=== PATIENT | male | born 1990 | race Two or more races ===

== ENCOUNTER 2024-02-21 07:49 | Inpatient (IN) | payer OTHER ==
[~2024-02-21] VITALS: Ht 165.1 cm; Wt 129.7 kg
--- NOTE | 2024-02-21 08:17 | NUR ---
PTE REFIERE SEVERA CONSTRIPACION, HACE VARIOS LEVIN. Y DESDE JAVIER COMENZO CON DOLOR GEORGE SIN EVACUAR., SE LE PENNY S/V Y SE UBICA EN PASILLO.
[2024-02-21] MEDS ORDERED: MORPHINE SULFATE 4 MG/ML CARTRIDGE IV ONE ×2 (08:30→13:30)
[2024-02-21] MEDS ORDERED: FAMOtidine 10 MG/ML (4ML VIAL) IV ONE (08:30)
[2024-02-21] MEDS ORDERED: SODIUM CHLORIDE IV ONE (08:30)
[2024-02-21] MEDS ORDERED: DIPHENHYDRAMINE HCL 50 MG/ML VIAL 1ML IV ONE (08:45)
[2024-02-21] MEDS ORDERED: METHYLPREDNISOLONE SOD SUCC 40 MG VIAL IV ONE (08:45)
[2024-02-21] MEDS ORDERED: METHYLPREDNISOLONE SOD SUCC 40 MG VIAL ONE (08:49)
[2024-02-21] MEDS ORDERED: DIPHENHYDRAMINE HCL 50 MG/ML VIAL 1ML ONE (08:49)
[2024-02-21] MEDS ORDERED: FAMOTIDINE/PF 20 MG/2 ML VIAL ONE ×2 (08:49→17:33)
--- NOTE | 2024-02-21 08:55 | NUR ---
PACIENTE EVALUADO POR MD DAVIS ORDENA TRATAMIENTO MEDICO, LUKAS HAHN LE ORIENTA A PACIENTE SOBRE EL MISMO Y VERBALIZA ENTENDER, LE COLECTA MUESTRAS DE LABORATORIO Y LE CANALIZA BAJO MEDIDAS, LE ADMINISTRA MEDICAMENTOS Y LE COLOCA IV FLUIDS GERA ORDEN.
[2024-02-21] MEDS ORDERED: BARIUM SULFATE 450 ML ORAL.SUSP PO ONE (09:02)
[2024-02-21] MEDS ORDERED: LIDOCAINE HCL VISCOUS 20MG/ML BLIST 15ML MM ONE (09:07)
[2024-02-21 09:52] LABS: AMYLASE 52 U/L (25-115); LIPASE 25 U/L (13-75)
[2024-02-21 09:54] LABS: INR 1.04; PARTIAL THROMBOPLASTIN TIME 32.3 SECONDS (22.0-34.0); PROTHROMBIN TIME 10.9 SECONDS (9.0-11.5)
[2024-02-21 09:57] LABS: PH,URINE 5.5 (5.0-8.0); URINE APPEARANCE Clear; URINE BILIRRUBIN Negative (NEGATIVE); URINE BLOOD Negative; URINE COLOR Yellow; URINE GLUCOSE Negative (NEGATIVE); URINE LEUKOCYTE Negative; URINE NITRATE Negative; URINE PROTEIN Trace (NEGATIVE)
[2024-02-21 10:01] LABS: URINE BACTERIA 16.3 uL (0.0-1933); URINE EPITHELIAL CELLS 26.8 uL (0.0-38.8); URINE WBC 14.6 uL (0.0-23.2)
[2024-02-21 10:05] LABS: HEMATOCRIT 41.2 % (39.0-48.0); HEMOGLOBIN 13.7 g/dL (13-16.00); MEAN CELL VOLUME 80.8 fL (80.0-100.00); MEAN CORPUSCULAR HEMOGLOBIN 26.9 pg (27.00-32.0); MEAN CORPUSCULAR HGB CONC 33.3 g/dl (32.0-36.0); PLATELET COUNT 344 K/uL (150-450); RED CELL DISTRIBUTION WIDTH 14.2 % (11.5-14.5)
[2024-02-21 10:11] LABS: BILIRUBIN TOTAL 0.39 mg/dL (0.3-1.2); CALCIUM 10.4 mg/dL (8.5-10.1); CREATININE SERUM 0.87 mg/dL (0.70-1.30); GFR 99.86; GLOBULINA 4.7 G/DL (2.4-3.5); POTASSIUM 3.77 mEq/L (3.5-5.1); TOTAL PROTEIN 8.7 gm/dL (6.4-8.2)
--- NOTE | 2024-02-21 10:23 | NUR ---
RN JOVANI LE INSERTA SONDA NASOGRATRICA # 18 EN FOSA NASAL DERECHA, AL MOMENTO SE OBESRVA CON EGRESO DE RESIDUOS GASTRICOS.
[2024-02-21 10:51] LABS: URINE CAST 1.22 uL (0.0-1.40); URINE KETONE 80 (NEGATIVE); URINE RBC 1.8 uL (0.0-20.8)
[2024-02-21] MEDS ORDERED: ONDANSETRON HCL 2 MG/ML VIAL ONE ×2 (13:43→17:32)
[2024-02-21] MEDS ORDERED: FAMOTIDINE/PF 20 MG in 0.9 % SODIUM CHLORIDE 8 ML IV PUSH SCH (17:14)
[2024-02-21] MEDS ORDERED: ACETAMINOPHEN 500 MG GEL..CAP PO PRN (17:15)
[2024-02-21] MEDS ORDERED: DEXTROSE 5 % AND 0.9 % NACL 1,000 ML IV SCH (17:15)
[2024-02-21] MEDS ORDERED: ONDANSETRON HCL 4 MG in 0.9 % SODIUM CHLORIDE 50 ML IV PRN (17:15)
[2024-02-21] MEDS ORDERED: ENALAPRILAT DIHYDRATE 1.25 MG/ML VIAL IV PRN (17:15)
[2024-02-21] MEDS ORDERED: CIPROFLOXACIN IN 5 % DEXTROSE 200 ML IV SCH (17:16)
[2024-02-21] MEDS ORDERED: METRONIDAZOLE/SODIUM CHLORIDE 100 ML IV SCH (17:16)
[2024-02-21] MEDS ORDERED: MORPHINE SULFATE 2 MG/ML CARTRIDGE IV SCH (18:00)
[2024-02-22 07:10] LABS: ALBUMIN 3.8 gm/dL (3.4-5.0); ALKALINE PHOSPHATASE 100 U/L (50-136); ALT/SGPT 19 U/L (12-78); ANION GAP 11 (10.0-20.0); AST/SGOT 14 U/L (15-37); BILIRUBIN TOTAL 0.31 mg/dL (0.3-1.2); BILIRUBIN,CONJUGATED < 0.10 mg/dL (0.0-0.2); BILIRUBIN,UNCONJUGATED 0.21 mg/dL (0.0-0.6); BLOOD UREA NITROGEN 10 mg/dL (7-18); BUN CREA RATIO 13 (7.0-25.0); CARBON DIOXIDE 26 mEq/L (21-32); CHLORIDE 105 mmol/L (98-107); CHOL HDL RATIO 5.9 (0-5.0); CHOLESTEROL 231 mg/dL (0-200); CREATININE SERUM 0.77 mg/dL (0.70-1.30); GFR 114.97; GLOBULINA 3.9 G/DL (2.4-3.5); GLUCOSE FASTING 156 mg/dL (65-100); HDL 39 mg/dl (40-60); LDL 177 mg/dl (0-130); LIPASE 25 U/L (13-75); OSMOLALITY SERUM 278 MOSM/KG (275-295); SODIUM 138 mmol/L (136-145); TOTAL PROTEIN 7.7 gm/dL (6.4-8.2); TRIGLYCERIDES 73 mg/dL (0-150); VLDL 14 (0-39)
[2024-02-22 07:24] LABS: C-REACTIVE PROTEIN 4.39 MG/DL (0.00-0.29)
[2024-02-22 08:36] LABS: HEMATOCRIT 39.6 % (39.0-48.0); HEMOGLOBIN 13.2 g/dL (13-16.00); MEAN CELL VOLUME 82.3 fL (80.0-100.00); MEAN CORPUSCULAR HEMOGLOBIN 27.4 pg (27.00-32.0); MEAN CORPUSCULAR HGB CONC 33.3 g/dl (32.0-36.0); PLATELET COUNT 336 K/uL (150-450); RED BLOOD COUNT 4.81 M/uL (4.00-6.00); RED CELL DISTRIBUTION WIDTH 13.9 % (11.5-14.5)
[2024-02-22] MEDS ORDERED: ENOXAPARIN SODIUM 40 MG/0.4 ML SYRINGE SUBCUTANEO SCH (09:00)
[2024-02-22 09:10] LABS: INR 1.08; PARTIAL THROMBOPLASTIN TIME 29.4 SECONDS (22.0-34.0); PROTHROMBIN TIME 11.3 SECONDS (9.0-11.5)
[2024-02-22] MEDS ORDERED: MORPHINE SULFATE 4 MG/ML VIAL IV STA (09:27)
[2024-02-22] MEDS ORDERED: MORPHINE SULFATE 4 MG/ML CARTRIDGE IV PRN (09:30)
[2024-02-22 09:42] LABS: PH,URINE 5.5 (5.0-8.0); URINE APPEARANCE Clear; URINE BILIRRUBIN Negative (NEGATIVE); URINE BLOOD Negative; URINE COLOR Dark Yellow; URINE GLUCOSE Negative (NEGATIVE); URINE KETONE 15 (NEGATIVE); URINE LEUKOCYTE Trace; URINE NITRATE Negative; URINE PROTEIN 30 (NEGATIVE); URINE UROBILINOGEN 0.2 E.U./dl
[2024-02-22 09:45] LABS: URINE BACTERIA 22.6 uL (0.0-1933); URINE CAST 2.29 uL (0.0-1.40); URINE EPITHELIAL CELLS 12.6 uL (0.0-38.8); URINE RBC 2.1 uL (0.0-20.8); URINE WBC 10.9 uL (0.0-23.2)
[2024-02-22] MEDS ORDERED: MEPERIDINE HCL/PF 25 MG/ML VIAL IM STA (12:13)
[2024-02-22] MEDS ORDERED: MEPERIDINE HCL/PF 50 MG/ML VIAL IV PRN (12:45)
[2024-02-22] MEDS ORDERED: HYOSCYAMINE SULFATE 0.125 MG TAB.SUBL SL SCH (13:00)
[2024-02-23] MEDS ORDERED: SUGAMMADEX SODIUM 200 MG/2 ML VIAL IV ONE (12:30)
[2024-02-23] MEDS ORDERED: RINGERS SOLUTION,LACTATED 1,000 ML IV SCH (13:00)
[2024-02-23] MEDS ORDERED: ONDANSETRON HCL 2 MG/ML VIAL IV PRN (13:00)
[2024-02-23] MEDS ORDERED: DEXTROSE 50 % IN WATER 0.5 G/ML DISP.SYRIN IV PRN (13:00)
[2024-02-23] MEDS ORDERED: HYOSCYAMINE SULFATE 0.125 MG TAB.SUBL SL SCH (13:00)
[2024-02-23] MEDS ORDERED: FAMOTIDINE/PF 20 MG/2 ML VIAL IV PUSH SCH (21:00)
[2024-02-24 08:10] LABS: MEAN CELL VOLUME 81.5 fL (80.0-100.00); MEAN CORPUSCULAR HEMOGLOBIN 27.1 pg (27.00-32.0); MEAN CORPUSCULAR HGB CONC 33.2 g/dl (32.0-36.0); PLATELET COUNT 272 K/uL (150-450); RED BLOOD COUNT 4.42 M/uL (4.00-6.00); RED CELL DISTRIBUTION WIDTH 13.6 % (11.5-14.5)
[2024-02-24 09:04] LABS: ALBUMIN 2.8 gm/dL (3.4-5.0); CREATININE SERUM 0.56 mg/dL (0.70-1.30); GFR 166.03; MAGNESIUM 1.9 mg/dL (1.8-2.4); POTASSIUM 3.61 mEq/L (3.5-5.1)
[2024-02-24 09:27] LABS: PHOSPHOROUS 1.7 mg/dL (2.5-4.9)
[2024-02-24] MEDS ORDERED: NAPH,MB-DB/K PH,MBDB 1 PKT PACKET PO SCH (13:00)
[2024-02-24] MEDS ORDERED: ENOXAPARIN SODIUM 40 MG/0.4 ML SYRINGE SUBCUTANEO SCH (17:00)
[2024-02-24] MEDS ORDERED: GABAPENTIN 300 MG CAPSULE PO SCH (17:01)
[2024-02-24] MEDS ORDERED: MEPERIDINE HCL/PF 50 MG/ML VIAL IV PRN (17:15)
[2024-02-25] MEDS ORDERED: ENOXAPARIN SODIUM 40 MG/0.4 ML SYRINGE SUBCUTANEO SCH (09:00)
[2024-02-25 18:02] LABS: URINE APPEARANCE Clear; URINE BILIRRUBIN Negative (NEGATIVE); URINE BLOOD Negative; URINE COLOR Yellow; URINE GLUCOSE Negative (NEGATIVE); URINE KETONE Negative (NEGATIVE); URINE LEUKOCYTE Negative; URINE NITRATE Negative; URINE PROTEIN Negative (NEGATIVE); URINE UROBILINOGEN 0.2 E.U./dl
[2024-02-25 18:03] LABS: URINE BACTERIA 8.8 uL (0.0-1933); URINE WBC 2.4 uL (0.0-23.2)
[2024-02-25 18:08] LABS: URINE CAST 0.61 uL (0.0-1.40); URINE RBC 0.9 uL (0.0-20.8)
[2024-02-26 07:12] LABS: HEMATOCRIT 38.4 % (39.0-48.0); HEMOGLOBIN 12.7 g/dL (13-16.00); MEAN CELL VOLUME 82.2 fL (80.0-100.00); MEAN CORPUSCULAR HEMOGLOBIN 27.1 pg (27.00-32.0); MEAN CORPUSCULAR HGB CONC 32.9 g/dl (32.0-36.0); PLATELET COUNT 332 K/uL (150-450); RED BLOOD COUNT 4.67 M/uL (4.00-6.00); RED CELL DISTRIBUTION WIDTH 13.9 % (11.5-14.5)
[2024-02-26] MEDS ORDERED: INTESTINEX680 M1 PO (17:22)
[2024-02-26] MEDS ORDERED: PROTONIX20 MG PO (17:23)
[2024-02-26] MEDS ORDERED: FLAGYL375 MG PO ×2 (17:23→17:38)
[2024-02-26] MEDS ORDERED: CIPRO500 MG PO ×2 (17:23→17:36)
[2024-02-26] MEDS ORDERED: ED-SPAZ0.125 MG PO ×2 (17:24→17:36)
[2024-02-26] MEDS ORDERED: NEURONTIN300 MG PO ×2 (17:24→17:36)
[2024-02-26] MEDS ORDERED: PROTONIX40 M1 PO (17:38)
== END 2024-02-26 19:26 | disposition home or self-care (01) | DRG 331 ==
LOC: ER 07:51 → SURG 17:37 → SURH 02-26 16:08
PROVIDERS: General Practice; Internal Medicine Infectious Disease; Surgery; ADMIT Internal Medicine; ATTEND Internal Medicine
PROC: BW21ZZZ Computerized Tomography (CT Scan) of Abdomen and Pelvis (ICD-10-PCS; 2024-02-21)
PROC: 0D1L0Z4 Bypass Transverse Colon to Cutaneous, Open Approach (ICD-10-PCS; principal; 2024-02-23 12:15)
DX: K56.609 Unspecified intestinal obstruction, unspecified as to partial versus complete obstruction (principal); K57.30 Diverticulosis of large intestine without perforation or abscess without bleeding

== ENCOUNTER 2024-05-04 11:15 | Inpatient (IN) | payer OTHER ==
[~2024-05-04] VITALS: Ht 165.1 cm; Wt 71.7 kg
[~2024-05-04 11:15] MED LIST: CIPRO500 MG PO; ED-SPAZ0.125 MG PO; FLAGYL375 MG PO; INTESTINEX680 M1 PO; NEURONTIN300 MG PO; PROTONIX20 MG PO; PROTONIX40 M1 PO
[2024-05-06 15:38] VITALS: BP 128/77
[2024-05-10] MEDS ORDERED: CEFTRIAXONE SODIUM 2,000 MG VIAL IV ONE (16:45)
[2024-05-10] MEDS ORDERED: BUPIVACAINE HCL/PF 0.25% 30ML VIAL InF ONE (16:45)
[2024-05-10] MEDS ORDERED: LIDOCAINE HCL 1%/EPINEPHRINE 20ML VIAL IJ ONE (16:45)
[2024-05-10] MEDS ORDERED: METRONIDAZOLE/SODIUM CHLORIDE 500 MG/100 ML PIGGYBACK IV ONE (16:45)
[2024-05-10] MEDS ORDERED: RINGERS SOLUTION,LACTATED 1,000 ML IV SCH (18:30)
[2024-05-10] MEDS ORDERED: ONDANSETRON HCL 2 MG/ML VIAL IV PRN (18:30)
[2024-05-10] MEDS ORDERED: MORPHINE SULFATE 4 MG/ML CARTRIDGE IV PRN (18:30)
[2024-05-10] MEDS ORDERED: OxyCODONE HCL 5 MG TABLET (ROXICODONE) PO PRN (18:30)
[2024-05-10] MEDS ORDERED: MORPHINE SULFATE 4 MG/ML VIAL IV ONE ×2 (19:20→20:05)
[2024-05-10] MEDS ORDERED: ACETAMINOPHEN 500 MG GEL..CAP PO SCH (20:00)
[2024-05-10 21:00] VITALS: BP 156/82; O2SAT 100
[2024-05-10] MEDS ORDERED: CELECOXIB 200 MG CAPSULE PO SCH (21:00)
[2024-05-10] MEDS ORDERED: SIMETHICONE 125 MG CAPSULE PO SCH (21:00)
[2024-05-10] MEDS ORDERED: FAMOTIDINE/PF 20 MG/2 ML VIAL IV PUSH SCH (21:00)
[2024-05-10 23:20] LABS: HEMATOCRIT 40.7 % (39.0-48.0); HEMOGLOBIN 13.3 g/dL (13-16.00); MEAN CORPUSCULAR HEMOGLOBIN 26.9 pg (27.00-32.0); MEAN CORPUSCULAR HGB CONC 32.8 g/dl (32.0-36.0); PLATELET COUNT 267 K/uL (150-450); RED BLOOD COUNT 4.96 M/uL (4.00-6.00); RED CELL DISTRIBUTION WIDTH 15.5 % (11.5-14.5)
[2024-05-11 00:16] VITALS: BP 156/87; O2SAT 100
[2024-05-11] MEDS ORDERED: METOCLOPRAMIDE HCL 5 MG/ML VIAL IV SCH (01:00)
[2024-05-11] MEDS ORDERED: GABAPENTIN 300 MG CAPSULE PO SCH (01:00)
[2024-05-11 06:58] LABS: HEMATOCRIT 39.3 % (39.0-48.0); HEMOGLOBIN 13.1 g/dL (13-16.00); MEAN CELL VOLUME 81.1 fL (80.0-100.00); MEAN CORPUSCULAR HEMOGLOBIN 27.1 pg (27.00-32.0); MEAN CORPUSCULAR HGB CONC 33.4 g/dl (32.0-36.0); PLATELET COUNT 250 K/uL (150-450); RED BLOOD COUNT 4.84 M/uL (4.00-6.00); RED CELL DISTRIBUTION WIDTH 15.5 % (11.5-14.5)
[2024-05-11 07:50] LABS: ALBUMIN 3.4 gm/dL (3.4-5.0); CALCIUM 8.9 mg/dL (8.5-10.1); CREATININE SERUM 0.63 mg/dL (0.70-1.30); GFR 144.93; MAGNESIUM 1.9 mg/dL (1.8-2.4); PHOSPHOROUS 3.2 mg/dL (2.5-4.9); POTASSIUM 4.25 mEq/L (3.5-5.1)
[2024-05-11 08:00] VITALS: BP 122/79; O2SAT 97
[2024-05-11] MEDS ORDERED: HYOSCYAMINE SULFATE 0.125 MG TAB.SUBL SL SCH (09:00)
[2024-05-11 16:23] VITALS: BP 116/69; O2SAT 98
[2024-05-11] MEDS ORDERED: POLYETHYLENE GLYCOL 3350 17 GM BLIST.PACK PO SCH (17:00)
[2024-05-11] MEDS ORDERED: ENOXAPARIN SODIUM 40 MG/0.4 ML SYRINGE SUBCUTANEO SCH (17:00)
[2024-05-12 02:09] VITALS: BP 115/66; O2SAT 97
[2024-05-12 08:49] VITALS: BP 108/68; O2SAT 97
[2024-05-12] MEDS ORDERED: ENOXAPARIN SODIUM 40 MG/0.4 ML SYRINGE SUBCUTANEO SCH (09:00)
[2024-05-12] MEDS ORDERED: CELECOXIB200 MG PO (15:10)
[2024-05-12] MEDS ORDERED: INTESTINEX680 M1 PO (15:11)
[2024-05-12] MEDS ORDERED: TRAM1TAB98 PO (15:11)
[2024-05-12] MEDS ORDERED: NEURONTIN300 MG PO (15:12)
[2024-05-12 17:00] VITALS: BP 138/80; O2SAT 98
== END 2024-05-12 17:22 | disposition home or self-care (01) | DRG 331 ==
LOC: SURH 05-10 09:20 → O/R 05-10 09:20 → SURH 05-10 11:15
PROVIDERS: ADMIT Surgery; ATTEND Surgery
PROC: 0DBP4ZZ Excision of Rectum, Percutaneous Endoscopic Approach (ICD-10-PCS; 2024-05-10)
PROC: 0DBL4ZZ Excision of Transverse Colon, Percutaneous Endoscopic Approach (ICD-10-PCS; 2024-05-10)
PROC: 0DJD8ZZ Inspection of Lower Intestinal Tract, Via Natural or Artificial Opening Endoscopic (ICD-10-PCS; 2024-05-10)
PROC: 0DTN4ZZ Resection of Sigmoid Colon, Percutaneous Endoscopic Approach (ICD-10-PCS; principal; 2024-05-10 15:00)
DX: K57.20 Diverticulitis of large intestine with perforation and abscess without bleeding (principal); K66.0 Peritoneal adhesions (postprocedural) (postinfection)

== ENCOUNTER 2024-06-16 15:53 | Emergency (ER) | payer OTHER ==
[~2024-06-16] VITALS: Ht 165.1 cm; Wt 70.3 kg
[~2024-06-16 15:53] MED LIST changes: +CELECOXIB200 MG PO; +TRAM1TAB98 PO
[2024-06-16 16:10] VITALS: BP 116/73; O2SAT 99
[2024-06-16] MEDS ORDERED: 0.9 % SODIUM CHLORIDE 1,000 ML IV SCH (17:00)
[2024-06-16] MEDS ORDERED: MEPERIDINE HCL/PF 50 MG/ML VIAL IM ONE (17:00)
[2024-06-16] MEDS ORDERED: ONDANSETRON HCL 2 MG/ML VIAL IV ONE (17:00)
[2024-06-16 17:26] LABS: HEMATOCRIT 40.8 % (39.0-48.0); HEMOGLOBIN 13.4 g/dL (13-16.00); MEAN CELL VOLUME 82.8 fL (80.0-100.00); MEAN CORPUSCULAR HEMOGLOBIN 27.1 pg (27.00-32.0); MEAN CORPUSCULAR HGB CONC 32.8 g/dl (32.0-36.0); PLATELET COUNT 171 K/uL (150-450); RED BLOOD COUNT 4.93 M/uL (4.00-6.00); RED CELL DISTRIBUTION WIDTH 14.4 % (11.5-14.5)
[2024-06-16 18:09] LABS: INR 1.01; PARTIAL THROMBOPLASTIN TIME 28.4 SECONDS (22.0-34.0)
[2024-06-16 18:15] LABS: ALBUMIN 3.5 gm/dL (3.4-5.0); BILIRUBIN TOTAL 0.48 mg/dL (0.3-1.2); CREATININE SERUM 0.69 mg/dL (0.70-1.30); GFR 130.48; GLOBULINA 3.4 G/DL (2.4-3.5); POTASSIUM 4.07 mEq/L (3.5-5.1); TOTAL PROTEIN 6.9 gm/dL (6.4-8.2)
[2024-06-16] MEDS ORDERED: INTESTINEX680 M1 PO (21:38)
[2024-06-16] MEDS ORDERED: PEPCID AC20 MG PO (21:38)
[2024-06-16] MEDS ORDERED: LEVSIN/SL0.125 MG SL (21:38)
[2024-06-16] MEDS ORDERED: CIPRO500 MG PO (21:38)
[2024-06-16] MEDS ORDERED: METRONIDAZOLE500 MG PO (21:38)
[2024-06-16] MEDS ORDERED: CIPROFLOXACIN HCL 500 MG TABLET PO ONE (21:45)
[2024-06-16] MEDS ORDERED: METROnidazole 500 MG TABLET PO ONE (21:45)
== END 2024-06-16 21:56 | disposition home or self-care (01) ==
LOC: ER 15:55
PROVIDERS: General Practice
DX: R10.32 Left lower quadrant pain (principal); K57.32 Diverticulitis of large intestine without perforation or abscess without bleeding; Z91.013 Allergy to seafood; Z93.3 Colostomy status

== ENCOUNTER 2025-04-19 20:41 | Emergency (ER) | payer OTHER ==
[~2025-04-19] VITALS: Ht 165.1 cm; Wt 72.6 kg
[~2025-04-19 20:41] MED LIST changes: +LEVSIN/SL0.125 MG SL; +METRONIDAZOLE500 MG PO; +PEPCID AC20 MG PO
[2025-04-19] MEDS ORDERED: 0.9 % SODIUM CHLORIDE 1,000 ML IV STA (21:06)
[2025-04-19] MEDS ORDERED: ONDANSETRON HCL 2 MG/ML VIAL ONE (21:08)
[2025-04-19] MEDS ORDERED: ONDANSETRON HCL 2 MG/ML VIAL IV ONE (21:15)
[2025-04-19 21:33] LABS: BASO % 1.0 % (0.1-1.2); EOS # 0.60 (0.04-0.54); EOS % 6.5 % (0.7-7.0); LYMPH # 3.15 (1.18-3.74); LYMPH % 34.1 % (19.3-53.1); MEAN PLATELET VOLUME 9.70 fl (9.4-12.4); MONO # 0.59 (0.24-0.82); MONO % 6.4 % (4.7-12.5); NEUT # 4.81 (1.56-6.13); NEUT % 51.9 % (34.0-71.1); RED CELL DISTRIBUTION WIDTH 13.2 % (11.6-14.4)
[2025-04-19] MEDS ORDERED: MORPHINE SULFATE 2 MG/ML SYRINGE IV STA (21:35)
[2025-04-19 21:45] LABS: URINE APPEARANCE Clear; URINE BILIRRUBIN Negative (NEGATIVE); URINE BLOOD Negative; URINE COLOR Yellow; URINE GLUCOSE Negative (NEGATIVE); URINE KETONE Trace (NEGATIVE); URINE LEUKOCYTE Negative; URINE NITRATE Negative; URINE PROTEIN Trace (NEGATIVE); URINE UROBILINOGEN 1.0 E.U./dl
[2025-04-19 21:49] LABS: URINE BACTERIA 52.7 uL (0.0-1933); URINE EPITHELIAL CELLS 9.2 uL (0.0-38.8); URINE RBC 3.3 uL (0.0-20.8); URINE WBC 13.9 uL (0.0-23.2)
[2025-04-19 21:52] LABS: URINE CAST 0.29 uL (0.0-1.40)
[2025-04-19 22:00] LABS: INR 1.0
[2025-04-19 22:12] LABS: ALT/SGPT 15.0 U/L (12-78); AST/SGOT 16.0 U/L (15-37); BILIRUBIN TOTAL 0.34 mg/dL (0.3-1.2); BUN CREA RATIO 12.0 (7.0-25.0); CREATININE SERUM 0.85 mg/dL (0.70-1.30); GFR 101.99; GLOBULINA 3.2 G/DL (2.4-3.5); GLUCOSE FASTING 95.0 mg/dL (65-100); OSMOLALITY SERUM 280.0 MOSM/KG (275-295)
[2025-04-19] MEDS ORDERED: MINERAL OIL 30 ML BLIST.PACK PO STA (23:43)
[2025-04-19] MEDS ORDERED: MAGNESIUM HYDROXIDE 400 MG/5 ML ML PO STA (23:44)
[2025-04-19] MEDS ORDERED: LACTULOSE 20 G/30 ML BLIST.PACK PO SCH (23:45)
[2025-04-20] MEDS ORDERED: MINERAL OIL 30 ML BLIST.PACK ONE (00:04)
[2025-04-20] MEDS ORDERED: MAGNESIUM HYDROXIDE 30 ML BLIST.PACK PO ONE (00:04)
[2025-04-20] MEDS ORDERED: LACTULOSE 20 G/30 ML BLIST.PACK ONE (00:04)
== END 2025-04-20 03:04 | disposition home or self-care (01) ==
LOC: ER 20:41
PROVIDERS: Physician Assistant Medical
DX: K59.00 Constipation, unspecified (principal); Z91.013 Allergy to seafood; Z93.3 Colostomy status